=== PATIENT | female | born 1985 | race Caucasian/White ===

== ENCOUNTER 2016-09-01 13:53 | Emergency (ER) | payer OTHER ==
[~2016-09-01] VITALS: Ht 170.2 cm; Wt 86.4 kg
[2016-09-01 14:05] VITALS: BP 131/88; PULSE 100; RESP 16; O2SAT 97
--- NOTE | 2016-09-01 14:11 | ED.REPORT ---
HPI-Abd Pain F Under 41 Date of Service Sep 01, 2016 ED Provider: Dr. Valerio The patient is a healthy 31 year old female presenting to the ED complaining of RLQ abdominal pain onset 1.5 weeks ago. She admits to vomiting with small specks of blood, although it as been clear since arrival to the ED. The patient has been sexually active and denies any vaginal discharge or bleeding. She was seen at [facility] previously for the same symptoms at which time abdominal CT was performed and was normal. Nursing Notes Stated Complaint: ABDOMINAL PAIN Chief Complaint: Female Abdominal Pain Nursing Notes Reviewed: Yes Allergies: Coded Allergies: Contrast Media (Verified Allergy, Mild, SNEEZING, 09/01/16) PATIENT SNEEZED ABOUT 15 TIMES FOLLOWING ADMINISTATION OF IODINE. PATIENT STATES SHE HAS HAD MILD SNEEZING RECENTLY DUE TO ILLNESS HOWEVER ITS NOT THAT MANY SNEEZES IN A ROW. NO OTHER ALLERGY SYMPTOMS. Scheduled PRN Ondansetron ODT (Zofran ODT) 4 Mg Tablet 4 MG PO Q4H PRN PRN For Nausea Tramadol (Tramadol) 50 Mg Tablet 50 MG PO Q4H PRN PRN For Pain General Time Seen by MD: 14:10 Chief Complaint Abdominal pain (RLQ) Hx Obtained From: Patient, EMS Arrived By: Ambulance Onset Occurred: More than a week ago... (2 weeks) Symptom Duration: Since onset Location: : RLQ Quality: Painful Severity: Current: Moderate Severity: Maximum: Moderate Recent Healthcare: No recent hospitalization, Recent doctor visit Similar Sx Previous: No Past Medical History Past Medical History Healthy Past Surgical History Denies Smoking History Current Some Day Smoker Social History Patient has used THC twice in the past month Alcohol Use: "Social" Drug Use: THC Ambulatory Status Independent Review of Systems Constitutional: Denies: Fever Respiratory: Denies: Non-productive cough, Shortness of breath Cardiovascular: Denies: Chest pain GI: Reports: Abdominal pain (RLQ), Nausea, Vomiting, Denies: Hematemesis Female: Denies: Vaginal bleeding - abnl, Vaginal discharge Musculoskeletal: Denies: Back pain, Extremity pain Complete sys rev & neg: except as marked. Physical Exam Initial Vital Signs Vital Signs (First) Date Time Temp Pulse Resp B/P Pulse Ox O2 Delivery O2 Flow Rate FiO2 09/01/16 14:05 36.4 100 16 131/88 97 Room Air Initial VS: Reviewed, Vital signs normal Head / Eyes: Atraumatic, Normocephalic, PERRL ENT: Mucous membranes moist, Conjunctiva normal, No scleral icterus Neck: Supple, Full range of motion Extremities: Vascular intact, Neuro intact Skin: Warm, Dry Neurologic: Alert, Oriented Psychiatric: Mood/affect normal, Behavior normal, Normal thought content General/Constitutional: Awake, Alert, No acute distress, Cooperative, Not toxic appearing Respiratory / Chest: Breath sounds NL, No respiratory distress Cardiovascular: Heart rate NL, Regular rhythm, Heart sounds NL, No murmurs Abdomen: Atraumatic, Soft, No guarding, No rebound Tenderness/Guarding/Rebound: Positive: Tender RLQ... (Moderate) Back: Inspection NL, Full range of motion, Non-tender Female Genitourinary: Bean Roaster present, Atraumatic, External genitalia NL, No bleeding, No discharge, No cervical motion tend, Os closed, No foreign body, No adnexal mass, No adnexal tenderness, No uterine enlargement, No uterine mass, No lesions or rash Interpretation & Diagnostics Lab Results Interpretation Result Diagram: 09/01/16 1430 09/01/16 1430 Test 09/01/16 14:30 09/01/16 14:40 White Blood Count 12.9th/mm3 (3.8-10.1) Red Blood Count 5.04mil/mm3 (3.90-5.20) Hemoglobin 14.7g/dL (12.0-15.6) Hematocrit 43.6% (35.0-46.0) Mean Corpuscular Volume 86.5fL (81-100) Mean Corpuscular Hemoglobin 29.2pg (27.0-35.0) Mean Corpuscular Hemoglobin Concent 33.7% (32.0-37.0) Red Cell Distribution Width 13.8% (12.3-15.4) Platelet Count 306bil/L (150-400) Neutrophils (%) (Auto) 76.8% (40-74) Lymphocytes (%) (Auto) 12.8% (14-46) Monocytes (%) (Auto) 8.7% (4-12) Eosinophils (%) (Auto) 1.0% (0-5) Basophils (%) (Auto) 0.2% (0-3) Sodium Level 138mEq/L (134-144) Potassium Level 4.2mEq/L (3.5-5.2) Chloride Level 101mEq/L (97-108) Carbon Dioxide Level 22mmol/L (18-29) Blood Urea Nitrogen 13mg/dL (6-20) Creatinine 0.74mg/dL (0.57-1.00) Estimat Glomerular Filtration Rate 132mL/min (>59) Glucose Level 137mg/dL (60-99) Calcium Level 9.7mg/dL (8.5-10.1) Magnesium Level 2.1mg/dL (1.6-2.6) Total Bilirubin 0.4mg/dL (0.0-1.2) Aspartate Amino Transf (AST/SGOT) 20U/L (0-50) Alanine Aminotransferase (ALT/SGPT) 24U/L (0-32) Alkaline Phosphatase 107U/L (25-150) Total Protein 7.8g/dL (6.4-8.4) Albumin 4.5g/dL (3.4-5.0) Lipase 23U/L (13-60) Hold Glaser Top Tube Received (Received) Hold Urine Received (Received) CT Abd / Pelvis Interpretation IMPRESSION: 1. Mild fluid-filled small bowel prominence as above. This could be security representative of enteritis. Other etiologies such as ileus versus developing partial small bowel obstruction cannot be excluded. 2. No right lower quadrant inflammatory change. 3. Prominent left-sided gonadal vessels. This can be seen with pelvic congestion. Dictated by: Agnieszka Ruiz M.D. on 09/01/2016 at 17:33 Approved by: Agnieszka Ruiz M.D. on 09/01/2016 at 17:38 Study type: Abdominal CT IV contrast Re-Eval/Medical Decision Med Decision/Clinical Course Med Decision/Clinical Course: Overall, reassuring CAT scan normal pelvic exam and nonspecific labs. Nonspecific abdominal pain; no obvious life threatening emergency is found. She will be discharged on tramadol and Zofran. Return and follow-up precautions given Source of Hx: Old records Re-Evaluation/Progress #1: Time of Eval: 16:00 Re-Evaluation/Progress Note: Pelvic exam was performed. Re-Evaluation/Progress #2: Time of Eval: 16:54 Re-Evaluation/Progress Note: Patients diagnosis and plan for discharge is discussed. The patient understands and agrees with the plan. All questions have been answered at this time. Counseled Regarding: Diagnosis, Lab results, Need for follow-up, When/why to return to ED Discharge & Departure Primary Impression: Pain, abdominal, nonspecific Disposition: Home Discharge Condition All VS Reviewed: Yes Condition: Stable Patient Instructions: Acute Abdominal Pain (ED) Additional Instructions: Overall, your tests are reassuring. Follow up with a primary care doctor for further evaluation. Use tramadol and Zofran as needed. Return to the ER for worsening symptoms such as persistent vomiting, high fever, blood in your vomit or stool, or other concerns. Referrals: [facility] Scribe Attestation Portions of this note were transcribed by Akin Ford and Evelio Gordon. I, Dr. Valerio personally performed the history, physical exam and medical decision-making; I reviewed and confirmed the accuracy of the information in the transcribed note. Signed by: Dez Pham, 09/01 [Time]. Moody Valerio DO Sep 01, 2016 14:11 kAin Ford Sep 01, 2016 14:28 EVELIO GORDON Sep 01, 2016 16:44
[2016-09-01] MEDS ORDERED: 0.9% Sodium Chloride 1,000 ML IV ONE (14:23)
[2016-09-01] MEDS ORDERED: HYDROmorphone 0.5 mg/0.5 mL iSecure Syringe IVPUSH PRN (14:25)
[2016-09-01] MEDS ORDERED: Ondansetron 2 mg/mL 2 mL Inj IVPUSH PRN (14:25)
[2016-09-01 14:58] LABS: BASOPHILS % (AUTO) 0.2 % (0-3); MONOCYTES % (AUTO) 8.7 % (4-12); Mean Corpuscular Hemoglobin 29.2 pg (27.0-35.0); Mean Corpuscular Volume 86.5 fL (81-100); NEUTROPHILS % (AUTO) 76.8 % (40-74); Platelet Count 306 bil/L (150-400)
[2016-09-01 15:11] LABS: Magnesium 2.1 mg/dL (1.6-2.6)
[2016-09-01 17:22] VITALS: BP 111/77; PULSE 79; RESP 17; O2SAT 98
--- NOTE | 2016-09-01 17:40 | DRSVH ---
PROCEDURE: CT ABDOMEN AND PELVIS WITH CONTRAST ([id number]) INDICATIONS: rlq pain TECHNIQUE: After the administration of intravenous contrast, 5 mm thick sections acquired from the diaphragm to the symphysis. 5 mm coronal and sagittal reformats were acquired. For radiation dose reduction, the following was used: automated exposure control, adjustment of mA and/or kV according to patient siz e. COMPARISON: None. FINDINGS: Image quality: Excellent. ABDOMEN: Lung bases: Lung bases are clear. Heart size is normal. Solid organs: Liver is mildly enlarged steatosis. The spleen is normal in size and enhancement. Gal lbladder is unremarkable. Biliary system is non dilated. Pancreas enhances normally. No adrenal no dules. Kidneys demonstrate normal size and enhancement, without hydronephrosis. Peritoneum and bowel: Small bowel loops demonstrate mild fluid-filled prominence. There is no free fl uid or free air. Visualized portions no free fluid or free air. Visualized portions of the appendix are unremarkable. No right lower quadr ant inflammatory change. Nodes and vessels: No retroperitoneal or mesenteric adenopathy by size criteria. Aorta and inferior vena cava are normal in size. Miscellaneous: No ventral hernias. PELVIS: Genitourinary: Bladder wall thickness is normal. Intrauterine device is noted. Prominent gonadal ve ssels particularly on the left is noted. Miscellaneous: No inguinal hernias or adenopathy. Bones: No suspicious bony lesions. No vertebral body compression fractures. IMPRESSION: 1. Mild fluid-filled small bowel prominence as above. This could be sales representative printing paper of enteritis. Othe r etiologies such as ileus versus developing partial small bowel obstruction cannot be excluded. 2. No right lower quadrant inflammatory change. 3. Prominent left-sided gonadal vessels. This can be seen with pelvic congestion. Dictated by: Agnieszka Ruiz M.D. on 09/01/2016 at 17:33 Approved by: Agnieszka Ruiz M.D. on 09/01/2016 at 17:38
[2016-09-01] MEDS ORDERED: TRAM50TA2 PO (17:53)
[2016-09-01] MEDS ORDERED: ONDA4TAB9 PO (17:53)
[2016-09-01 18:07] VITALS: BP 110/70; PULSE 78; RESP 16; O2SAT 98
== END 2016-09-01 18:09 | disposition home or self-care (01) ==
LOC: EDBD 13:53 → SED 13:53
DX: R10.9 Unspecified abdominal pain (principal)
CPT/HCPCS: 36415; 74177; 80053; 81025; 83690; 83735; 85025; 96361; 96374; 99285; J2405; J7030; Q9967